=== PATIENT | male | born 1985 | race Hispanic/Latino ===

== ENCOUNTER 2016-07-29 10:25 | Emergency (ER) | payer MEDICAID ==
[2016-07-29 10:39] VITALS: TEMP 98.4
[2016-07-29] MEDS ORDERED: Sodium Chloride 0.9% 500 ML IV ONE (11:46)
[2016-07-29 12:14] LABS: BASO # 0.1 K/uL (0.0-0.2); EOS # 0.1 K/uL (0.0-0.7); EOS % 0.8 % (0.0-4.0); HEMATOCRIT 49.1 % (35.0-51.0); LYMPH # 1.5 K/uL (1.0-4.3); LYMPH % 14.6 % (20.0-40.0); MEAN CELL VOLUME 87.9 fL (80.0-94.0); MEAN CORPUSCULAR HEMOGLOBIN 28.8 pg (27.0-31.0); MEAN CORPUSCULAR HGB CONC 32.8 g/dL (33.0-37.0); MEAN PLATELET VOLUME 6.7 fL (7.2-11.7); MONO % 9.4 % (0.0-10.0); RED CELL DISTRIBUTION WIDTH 13.4 % (11.5-14.5); WHITE BLOOD COUNT 10.4 K/uL (4.8-10.8)
[2016-07-29 12:17] LABS: RBC URINE 1 /hpf (0-3); URINE BILIRUBIN NEGATIVE (NEGATIVE); URINE BLOOD NEGATIVE (NEGATIVE); URINE COLOR Yellow (YELLOW); URINE GLUCOSE (UA) NORMAL (Normal); URINE KETONE NEGATIVE (NEGATIVE); URINE LEUKOCYTE ESTERASE NEG Leu/uL (Negative); URINE PROTEIN NEGATIVE (NEGATIVE); URINE UROBILINOGEN NORMAL mg/dL (0.2-1.0); WBC URINE 1 /hpf (0-5)
[2016-07-29 12:43] LABS: CHLORIDE 99 mmol/L (98-107); POTASSIUM 3.8 mmol/L (3.6-5.2); SODIUM 138 mmol/L (132-148)
[2016-07-29 12:46] LABS: BLOOD UREA NITROGEN 13 mg/dL (9-20); CARBON DIOXIDE 27 mmol/L (22-30); GFR AFRICAN-AMERICAN > 60; GLUCOSE,RANDOM 86 mg/dL (75-110)
[2016-07-29 12:47] LABS: CALCIUM 8.7 mg/dl (8.6-10.4)
--- NOTE | 2016-07-29 13:04 | C.PDOC ---
History Of Present Illness 31-year-old male, presents to the emergency department for evaluation of feeling weakness, fatigue, night sweats, body aches, and weight loss x2 weeks. For psat few days noted painful pimples over Right axilla. Otherwise, pt denies high fever, severe headache, dizziness, visual changes, focal deficits, neck pain, chest pain, shortness of breath, palpitations, abd. pain, V/D, UTi sx, hematuria, back pain.Ambulate to ED for evaluation, not in any apparent distress. Time Seen by Provider: 07/29/16 11:19 Chief Complaint (Nursing): Abnormal Skin Integrity History Per: Patient History/Exam Limitations: no limitations Onset/Duration Of Symptoms: Days Current Symptoms Are (Timing): Still Present Severity: Moderate Past Medical History Reviewed: Historical Data, Nursing Documentation, Vital Signs Vital Signs: Last Vital Signs Temp 98.4 F 07/29/16 10:36 Pulse 71 07/29/16 13:36 Resp 16 07/29/16 13:36 BP 133/85 07/29/16 13:36 Pulse Ox 98 07/29/16 13:36 - Medical History PMH: Pericarditis Surgical History: Cholecystectomy Family History: States: No Known Family Hx - Social History Hx Alcohol Use: No Hx Substance Use: No - Immunization History Hx Tetanus Toxoid Vaccination: No Hx Influenza Vaccination: No Hx Pneumococcal Vaccination: No Review Of Systems Except As Marked, All Systems Reviewed And Found Negative. Constitutional: Positive for: Sweats, Weakness, Malaise. Negative for: Fever Cardiovascular: Negative for: Chest Pain, Palpitations Respiratory: Negative for: Shortness of Breath Gastrointestinal: Negative for: Nausea, Vomiting Skin: Positive for: Rash Neurological: Positive for: Weakness. Negative for: Headache, Dizziness Physical Exam - Physical Exam Appears: Non-toxic, No Acute Distress Skin: Warm, Dry, Rash (Small, tender pustule (2cm) over right axilla, (-) erythema, (-) flactulance, (-) proximal streaking) Eye(s): bilateral: PERRL Nose: No Flaring, No Discharge Oral Mucosa: Moist, No Drooling Tongue: Normal Appearing, No Lesions Lips: Normal Appearing, No Lesions Throat: No Erythema, No Exudate, No Drooling Neck: Supple Cardiovascular: Rhythm Regular, No Murmur Respiratory: No Decreased Breath Sounds, No Accessory Muscle Use, No Rales, No Rhonchi, No Stridor, No Wheezing Gastrointestinal/Abdominal: Soft, No Tenderness, No Distention, No Guarding Back: No CVA Tenderness Extremity: Normal ROM, No Pedal Edema, No Deformity Neurological/Psych: Oriented x3, Normal Speech, Normal Motor, Normal Sensation, Normal Reflexes ED Course And Treatment - Laboratory Results Result Diagrams: 07/29/16 12:05 07/29/16 12:05 Lab Interpretation: Normal ECG: Interpreted By Me, Viewed By Me ECG Rhythm: Sinus Rhythm ECG Interpretation: No Acute Changes Interpretation Of ECG: T wave inversion: 3 Rate From EC O2 Sat by Pulse Oximetry: 96 - Radiology CXR: Interpreted by Me, Viewed By Me CXR Interpretation: Yes: No Acute Disease Progress Note: On re-evaluation, pt is afebrile, hemodynamicaly stable. NOn- toxic. NOt in any apparent distress. PulsEOx 99% RA. neck: (-) meningeal sign. ENT: tadeo cute findings. uvula midline, no edema. Lungs: CTA B/L, BS equal B/L. CVS: (+)S1S2, reg. Abd: benign. back: (-) CVA tenderness. Extr: no edema. Skin: Right axilla folliculitis, no flactulance, no proximal streaking. neurologicaly intact. Diagnostics review and appear snoraml. Pt advised and ref.to F/U with PMd in 1-2 days for re-eavl. return if any new changes. Disposition Counseled Patient/Family Regarding: Studies Performed, Diagnosis, Need For Followup, Rx Given - Disposition Referrals: [facility] [Outside] Disposition: HOME/ ROUTINE Disposition Time: 13:19 Condition: STABLE Additional Instructions: Encourage fluids Take medication as prescribed Follow up with PMD in 2-3 days for re-evaluation. Return to ED if any worsening or new changes. Prescriptions: Doxycycline Hyclate [Doryx] 100 mg PO BID #14 cap Instructions: Furunculosis and Carbunculosis (ED) - Clinical Impression Clinical Impression: Furuncle - Scribe Statement The provider has reviewed the documentation as recorded by the Meghana Frank All medical record entries made by the Alkaibimani were at my direction and personally dictated by me. I have reviewed the chart and agree that the record accurately reflects my personal performance of the history, physical exam, medical decision making, and the department course for this patient. I have also personally directed, reviewed, and agree with the discharge instructions and disposition.
[2016-07-29 13:37] VITALS: BP 133/85; PULSE 71; RESP 16
--- NOTE | 2016-07-29 13:37 | RAD ---
HISTORY: SOB COMPARISON: No prior. TECHNIQUE: Chest PA and lateral FINDINGS: LUNGS: No active pulmonary disease. PLEURA: No significant pleural effusion identified. No pneumothorax apparent. CARDIOVASCULAR: Normal. OSSEOUS STRUCTURES: No significant abnormalities. VISUALIZED UPPER ABDOMEN: Normal. OTHER FINDINGS: None. IMPRESSION: No active disease.
[2016-07-29 17:02] VITALS: O2SAT 96
--- NOTE | 2016-07-30 23:25 | CARD ---
APPROVED REPORT EKG Measurement Heart [id number] <Conclusion> Normal sinus rhythm Normal ECG
== END 2016-07-29 13:36 | disposition home or self-care (01) ==
LOC: C.ER 10:25
DX: L02.421 Furuncle of right axilla (principal)
CPT/HCPCS: 71020; 80048; 81001; 85025; 85651; 87070; 87430; 93005; 96361; 96374; 99283; J1885; J7040